=== PATIENT | female | born 1940 | race Caucasian/White ===

== ENCOUNTER 2019-03-26 11:06 | Emergency (ER) | payer MEDICARE, BC ==
[~2019-03-26] VITALS: Ht 165.1 cm; Wt 56.2 kg
[2019-03-26] MEDS ORDERED: ARMOUR THYROID60 M1 PO (11:20)
[2019-03-26] MEDS ORDERED: TRESIBA100 UNIT/1 SUBQ (11:21)
[2019-03-26] MEDS ORDERED: WELLBUTRIN XL300 MG PO (11:21)
[2019-03-26] MEDS ORDERED: NOVOLOG100 UNIT/1 SUBQ (11:21)
[2019-03-26 12:23] LABS: ABSOLUTE EOSINOPHILS 0.4 thou/uL (0.0-0.7); ABSOLUTE LYMPHOCYTES 2.4 thou/uL (0.8-5.3); ABSOLUTE MONOCYTES 0.5 thou/uL (0.0-1.2); ABSOLUTE NEUTROPHILS 5.2 thou/uL (1.6-8.1); BASOPHILS 0.5 %; EOSINOPHILS 4.5 %; HEMATOCRIT 37.7 % (37.0-47.0); HEMOGLOBIN 12.6 gm/dL (12.0-15.0); LYMPHOCYTES 28.2 %; MCH 28.5 pg (26.0-34.0); MCHC 33.5 g/dL (28.0-37.0); MCV 85.2 fL (80.0-100.0); MONOCYTES 5.7 %; MPV 6.7 fl. (7.2-11.1); NUCLEATED RBCS 0 /100WBC; PLATELET COUNT* 370 thou/uL (150-400); POLYS 61.1 %; RBC 4.43 mil/uL (4.20-5.00); RDW-CV 15.2 % (10.5-14.5); WBC 8.5 thou/uL (4.0-11.0)
[2019-03-26 12:34] LABS: ANION GAP 8 mmol/L (7-16); BUN 22 mg/dL (7-18); CALCIUM 9.3 mg/dL (8.5-10.1); CHLORIDE 104 mmol/L (98-107); CO2 28 mmol/L (21-32); CREATININE 0.8 mg/dL (0.6-1.3); GLUCOSE 167 mg/dL (70-99); POTASSIUM 4.2 mmol/L (3.5-5.1); SODIUM 140 mmol/L (136-145)
[2019-03-26 12:44] LABS: ALBUMIN 3.7 g/dL (3.4-5.0); ALKALINE PHOSPHATASE 78 U/L (46-116); NT-PRO BRAIN NAT PEPTIDE 154 pg/mL (<300); SGOT 14 U/L (15-37); SGPT 16 U/L (30-65); TOTAL BILIRUBIN 0.4 mg/dL (<0.1-1.0); TOTAL PROTEIN 7.2 g/dL (6.4-8.2); TROPONIN-I LEVEL <0.06 ng/mL (<0.06)
[2019-03-26] MEDS ORDERED: NORCO 5-325 TA1 EACH PO (14:43)
[2019-03-26] MEDS ORDERED: IBU800 MG PO (14:43)
[2019-03-26] MEDS ORDERED: KEFLEX500 M1 PO (14:43)
[2019-03-26 15:00] VITALS: BP 105/54
--- NOTE | 2019-03-27 11:38 | EKG ---
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
== END 2019-03-26 15:02 | disposition home or self-care (01) ==
LOC: M.ERS 11:06 → EDSEX 11:06 → M.ERS 15:02
PROVIDERS: Personal Emergency Response Attendant
DX: L03.039 Cellulitis of unspecified toe (principal); R11.2 Nausea with vomiting, unspecified

== ENCOUNTER 2019-08-07 11:06 | Emergency (ER) | payer MEDICARE, BC ==
[~2019-08-07] VITALS: Ht 165.1 cm; Wt 57.1 kg
[~2019-08-07 11:06] MED LIST: ARMOUR THYROID60 M1 PO; IBU800 MG PO; KEFLEX500 M1 PO; NORCO 5-325 TA1 EACH PO; NOVOLOG100 UNIT/1 SUBQ; TRESIBA100 UNIT/1 SUBQ; WELLBUTRIN XL300 MG PO
[2019-08-07] MEDS ORDERED: PENICILLIN V P500 MG PO (11:59)
[2019-08-07] MEDS ORDERED: AUGMENTIN 500-1 EACH PO (13:07)
[2019-08-07 13:16] VITALS: BP 133/72
== END 2019-08-07 13:17 | disposition home or self-care (01) ==
LOC: M.ERS 11:06
DX: S01.511A Laceration without foreign body of lip, initial encounter (principal); J01.90 Acute sinusitis, unspecified; E11.9 Type 2 diabetes mellitus without complications; Z79.4 Long term (current) use of insulin; Z90.710 Acquired absence of both cervix and uterus; Z98.890 Other specified postprocedural states; W01.0XXA Fall on same level from slipping, tripping and stumbling without subsequent striking against object, initial encounter; Y93.89 Activity, other specified; Y92.89 Other specified places as the place of occurrence of the external cause; Y99.8 Other external cause status

== ENCOUNTER 2019-08-10 15:27 | Emergency (ER) | payer MEDICARE, BC ==
[~2019-08-10] VITALS: Ht 165.1 cm; Wt 57.6 kg
[~2019-08-10 15:27] MED LIST changes: +AUGMENTIN 500-1 EACH PO; +PENICILLIN V P500 MG PO
[2019-08-10] MEDS ORDERED: NORCO 5-325 TA1 EAC1 PO (16:33)
[2019-08-10 16:41] VITALS: BP 143/71
== END 2019-08-10 16:43 | disposition home or self-care (01) ==
LOC: M.ERS 15:27
DX: S20.212A Contusion of left front wall of thorax, initial encounter (principal); S00.83XA Contusion of other part of head, initial encounter; E11.9 Type 2 diabetes mellitus without complications; Z90.710 Acquired absence of both cervix and uterus; Z98.890 Other specified postprocedural states; Z79.4 Long term (current) use of insulin; W01.0XXA Fall on same level from slipping, tripping and stumbling without subsequent striking against object, initial encounter; Y92.89 Other specified places as the place of occurrence of the external cause; Y93.89 Activity, other specified; Y99.8 Other external cause status

== ENCOUNTER 2019-08-20 17:26 | Inpatient (IN) | payer MEDICARE, BC ==
[~2019-08-20] VITALS: Ht 167.6 cm; Wt 58.4 kg
[~2019-08-20 17:26] MED LIST changes: +NORCO 5-325 TA1 EAC1 PO
[2019-08-20 17:27] VITALS: BP 142/63
[2019-08-20 18:04] LABS: HEMATOCRIT 34.9 % (37.0-47.0); HEMOGLOBIN 11.9 gm/dL (12.0-15.0); MCH 28.1 pg (26.0-34.0); MCV 82.6 fL (80.0-100.0); MPV 6.6 fl. (7.2-11.1); NUCLEATED RBCS 0 /100WBC; PLATELET COUNT* 368 thou/uL (150-400); RBC 4.22 mil/uL (4.20-5.00); RDW-CV 15.9 % (10.5-14.5); WBC 9.1 thou/uL (4.0-11.0)
[2019-08-20 18:17] LABS: ANION GAP 12 mmol/L (7-16); BUN 18 mg/dL (7-18); CALCIUM 8.8 mg/dL (8.5-10.1); CHLORIDE 105 mmol/L (98-107); CO2 24 mmol/L (21-32); CREATININE 0.8 mg/dL (0.6-1.3); GLUCOSE 98 mg/dL (70-99); POTASSIUM 3.6 mmol/L (3.5-5.1); SODIUM 141 mmol/L (136-145)
[2019-08-20 18:27] LABS: ALBUMIN 3.2 g/dL (3.4-5.0); ALKALINE PHOSPHATASE 87 U/L (46-116); NT-PRO BRAIN NAT PEPTIDE 302 pg/mL (<300); SGOT 15 U/L (15-37); SGPT 24 U/L (30-65); TOTAL BILIRUBIN 0.3 mg/dL (<0.1-1.0); TOTAL PROTEIN 6.4 g/dL (6.4-8.2); TROPONIN-I LEVEL <0.06 ng/mL (<0.06)
--- NOTE | 2019-08-20 18:41 | NUR ---
SWALLOW SCREEN TEST PERFORMED. PT DRANK A SIP OF WATER, CLEARED THROAT AFTER. NURSE ASKED IF PT HAD DIFFICULTY SWALLOWING WATER. PT DENIED, SAYING "WATER WENT DOWN FINE". PT CONTINUES TO COUGH. DR. NAGEL STATED HE FELT OKAY WITH PT GETTING ASPIRIN STILL. NURSE HOLDING OFF ON ASPIRIN AT THIS TIME.
[2019-08-20 18:43] LABS: ABSOLUTE EOSINOPHILS 1.5 thou/uL (0.0-0.7); ABSOLUTE LYMPHOCYTES 3.7 thou/uL (0.8-5.3); ABSOLUTE MONOCYTES 0.3 thou/uL (0.0-1.2); ABSOLUTE NEUTROPHILS 3.5 thou/uL (1.6-8.1)
[2019-08-20 18:44] LABS: ATYPICAL LYMPHS 17 %; PLATELET ESTIMATE ADEQUATE
--- NOTE | 2019-08-20 18:53 | NUR ---
REPORT GIVEN TO VINCENT PICKERING. VINCENT PICKERING TO ASSUME PT CARE AT THIS TIME.
[2019-08-20 20:00] VITALS: BP 134/69
[2019-08-21] VITALS: BP 106/61
[2019-08-21 04:00] VITALS: BP 111/66
[2019-08-21 05:00] LABS: ALBUMIN 3.3 g/dL (3.4-5.0); ALKALINE PHOSPHATASE 95 U/L (46-116); ANION GAP 11 mmol/L (7-16); BUN 17 mg/dL (7-18); CALCIUM 8.8 mg/dL (8.5-10.1); CHLORIDE 106 mmol/L (98-107); CHOLESTEROL 201 mg/dL (<200); CO2 26 mmol/L (21-32); CREATININE 0.8 mg/dL (0.6-1.3); GLUCOSE 162 mg/dL (70-99); HDL CHOLESTEROL 72 mg/dL (>40); LDL CHOLESTEROL 118 mg/dL (<100); POTASSIUM 4.3 mmol/L (3.5-5.1); SGOT 17 U/L (15-37); SGPT 25 U/L (30-65); SODIUM 143 mmol/L (136-145); TC:HDL 2.8 Ratio (Not establshd); TOTAL BILIRUBIN 0.4 mg/dL (<0.1-1.0); TOTAL PROTEIN 6.5 g/dL (6.4-8.2); TRIGLYCERIDE 56 mg/dL (<150); VLDL 11 mg/dL (<40)
[2019-08-21 05:14] LABS: SERUM ASSESSMENT CLEAR
--- NOTE | 2019-08-21 07:34 | NUR ---
RECEIVED REPORT AND ASSUMED CARE AT 1999.PT TRANSPORTED FROM ED TO ROOM 201. PT ORIENTATED TO ROOM, CALL LIGHT, FALL POLICY. UP WITH ASSIST, ON RA. PT RECEIVED ANTI-ANXIETY MEDICATION IN ED PRIOR TO ARRIVAL. PT NOT ABLE TO COMPLETE NIH ON ARRIVAL R/T DROWSINESS/ CONFUSION/ UNABLE TO FOLLOW INSTRUCTIONS, R/T MEDICATION. PER ED REPORT NIH =0 PRIOR TO MEDICATION ADMIN. PT COMPLETED NIH LATER IN SHIFT AFTER WAKING. NIH=0 PT DAUGHTER AND PT REPORTED PATIENT HAVING A "FEELING" THAT THE EPISODE WAS COMING. EPISODE INCLUDE "FEELING WARM" A SIGN ITS COMING. THEN CONFUSION WITH COMPLETING TASKS, TROUBLE SPEAKING. AND A " JERKING LIKE" BODY MOVEMENT. NO EPISODES ON THIS SHIFT. ASSESSMENTS COMPLETED CHARTED. CARDIAC MONITORING IN PLACE. PT DENIES COMPLAINTS OF PAIN. BED LOCKED IN LOWEST POSITION, CALL LIGHT WITHIN REACH. HOURLY ROUNDING COMPLETED AND ALL NEEDS MET
[2019-08-21 08:00] VITALS: BP 122/64
[2019-08-21 12:00] VITALS: BP 124/62
--- NOTE | 2019-08-21 12:20 | NUR ---
ASSUMED PT CARE AT 0800, AOX4, UP SBA, O2 SAT 90'S RA. TRACING SR 1ST DEGREE ON TELE. PT DENIES PAIN. PT FOR PT,OT,ST. [facility] IS O IN THIS SHIFT. PT HAD NEURO CONSULT. PT HAS HX OF FALL, REPORTED RIB FRACTURE FROM THAT. IV ACCESS INTACT, PT FOR ACCU CHECK. VSS, AM ASSESSMENT CHARTED. MEDS GIVEN PER MAR, CALL LIGHT WITHIN REACH, WILL CONTINUE TO MONITOR.
[2019-08-21 16:00] VITALS: BP 109/49
--- NOTE | 2019-08-21 16:56 | EKG ---
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
[2019-08-21 20:10] VITALS: BP 108/60
[2019-08-22] VITALS: BP 121/52
[2019-08-22 04:00] VITALS: BP 142/60
--- NOTE | 2019-08-22 06:48 | NUR ---
VSS. SEE MAR. SEE CHARTING. PROGRESSING TOWARDS GOALS. FALL PRECAUTIONS IN PLAC. HOURLYROUNDING FOR SAFETY.
[2019-08-22 08:00] VITALS: BP 136/57
--- NOTE | 2019-08-22 09:53 | NUR ---
Pt is A&O. Resides at home alone. Normally active and independent. No DME. No hx of HH or SNF. Pt plans to dc to her dtr's for a while at discharge and wants HH. CM provided HH list, Pt wants to use [facility]. Updated Dr on disposition. Faxed initial referral. Dtr's address:[address] [place] [address], [facility] [id number]
[2019-08-22 10:38] LABS: URINE BILIRUBIN NEGATIVE (Negative); URINE BLOOD NEGATIVE (Negative); URINE CLARITY CLEAR; URINE COLOR YELLOW; URINE GLUCOSE-RANDOM 1+ (Negative); URINE KETONES TRACE (Negative); URINE LEUKOCYTES-REFLEX NEGATIVE (Negative); URINE NITRITE-REFLEX NEGATIVE (Negative); URINE PROTEIN NEGATIVE (Negative); URINE UROBILINOGEN 0.2 E.U./dl (0.2-1.0)
[2019-08-22 12:00] VITALS: BP 129/63
[2019-08-22 13:46] LABS: GLYCOHEMOGLOBIN (HGB A1C) 7.7 % (4.8-5.6)
[2019-08-22 16:00] VITALS: BP 107/57
--- NOTE | 2019-08-22 17:36 | NUR ---
PT A/O. TELE TRACKING SR/SB AND ALL VSS ON ROOM AIR. DENIES CP, SOA. PT LOOKING FORWARD TO DC SOON. EDUCATED ON SAFETY AND PLAN OF CARE. PLEASE SEE ASSESSMENT FOR ADDITIONAL INFORMATION. WILL CONT TO MONITOR
[2019-08-22 19:30] VITALS: BP 119/55
[2019-08-23] VITALS (9 sets, daily range): BP systolic 101–149; BP diastolic 57–76
--- NOTE | 2019-08-23 06:31 | NUR ---
VSS. ASSESSMENT COMPLETED CHARTED. SEE MAR. PT PROGRESSING TOWARDS GOALS. FALL PRECAUTIONS IN PLACE. HOURLY ROUNDING FOR SAFETY.
--- NOTE | 2019-08-23 08:02 | NUR ---
INITAL ASSESSMENT COMPLETED CHARTED. VSS, TRACING SR WITH 1ST DEGREE BLOCK. NIH=0. PT ALERT & ORIENTED AND ABLE TO VOICE ALL NEEDS. PT C/O LEFT RIB PAIN WITH MOVEMENT ONLY. PT DENIES ANY FURTHER NEEDS AT THIS TIME. HOURLY ROUNDING AND FALL PRECAUTIONS IN PLACE FOR PT SAFETY. CLWR
--- NOTE | 2019-08-23 10:33 | NUR ---
Pt discharging to home today pending neuro signing off. Faxed referral and HH orders to [facility]. Pt to dc to dtr's home. No further needs anticipated.
--- NOTE | 2019-08-23 17:50 | NUR ---
PT HAD A FALL WHILE BEING DISCHARGED AND PREPARING TO LEAVE AT APPROXIMATELY 1730. PT C/O RIGHT HIP AND ANKLE PAIN. NO SHORTENING OR ROTATION NOTED. PHYSICIAN NOTIFIED. HOURLY ROUNDING AND FALL PRECAUTIONS IN PLACE. CLWR.
[2019-08-24 00:18] VITALS: BP 119/56
--- NOTE | 2019-08-24 03:21 | NUR ---
DR NOTIFIED OF RESULTS OF X-RAY. ORDERS RECIEVED. ORTHO CONSULTED, DR DORADO RETURNED CONSULT PAGE, ADDITIONAL ORDERS RECIEVED. DR SHELL CALLED AND STATED THAT DR VALDERRAMA WANTED DR. HIDALGO TO MAKE A NOTE TO CLEAR PT FOR SURGERY, STATING THAT SURGERY WAS SCHEDULED FOR 7AM. DR. HIDALGO NOTIFIED, DR HIDALGO STATED THAT PT HAD NO CARDIAC HISTORY AND THAT HE WAS NOT GOING TO WRITE A NOTE AT THAT TIME, BUT THAT ORTHO COULD TAKE PT TO SURGERY. ORTHO NOTIFIED AND STATED THAT SURGERY TIME HAD BEEN PUSHED BACK TO 1215 AND THAT THEY WOULD TAKE CARE OF CLEARING THE PATIENT IN THE AM. PATIENT AND PATIENTS DAUGHTER UPDATED ON PLAN.
--- NOTE | 2019-08-24 04:06 | NUR ---
PT HAD EPISODE OF LOW BLOOD SUGAR AT BEGINING OF SHIFT. WHILE BLOOD SUGAR WAS LOW PT HAD HEAD, NECK, AND FACIAL TWITCHING. NIH DONE AND JUICE GIVEN. NIH=0, ONCE SUGAR CAME BACK UP, TWITCHING STOPPED. PT EXPRESSED CONCERNS WITH THE AMOUNT OF INSULIN SHE RECIEVED THROUGH THE DAY. PT ASKS IF SHE COULD PLEASE TAKE HER HOME INSULIN WHILE IN THE HOSPITAL: HUMALOG QUICKPEN 5-7 UNITS TID WITH MEALS AND TRESIBA 8-9 UNITS HS. PT GAVE THIS NURSE HER INSULIN PENS TO BE ORDERED AND APPROVED THROUGH PHARMACY. INSULIN PENS IN PATIENT ACCESS BOX, WILL INFORM ONCOMING NURSE.
[2019-08-24 04:29] VITALS: BP 112/61
--- NOTE | 2019-08-24 04:52 | NUR ---
PT SLEPT MOST OF NIGHT. ASSESSMENT DOCUMENTED. MEDS GIVEN PER E-JAN. NEW IV STARTED. PT REMAINED NPO AFTER 0000. HOURLY ROUNDING COMPLETED. WILL CONTINUE WITH PLAN OF CARE.
[2019-08-24 08:21] LABS: HEMATOCRIT 34.7 % (37.0-47.0); HEMOGLOBIN 11.5 gm/dL (12.0-15.0); MCH 27.5 pg (26.0-34.0); MCHC 33.1 g/dL (28.0-37.0); MCV 83.2 fL (80.0-100.0); MPV 6.6 fl. (7.2-11.1); RBC 4.17 mil/uL (4.20-5.00); RDW-CV 15.7 % (10.5-14.5); WBC 9.8 thou/uL (4.0-11.0)
[2019-08-24 08:27] LABS: CALCIUM 8.5 mg/dL (8.5-10.1); MAGNESIUM 1.5 mg/dL (1.8-2.4); POTASSIUM 4.7 mmol/L (3.5-5.1)
[2019-08-24 09:16] VITALS: BP 112/61
[2019-08-24 09:18] VITALS: BP 120/65
--- NOTE | 2019-08-24 09:22 | NUR ---
Pt fell yesterday at nd. Planned surgery today to fix hip fx. CM following for disposition.
--- NOTE | 2019-08-24 17:22 | NUR ---
ASSUMED CARE OF PATIENT AT APPROX 0730. ALERT AND ORIENTED X4. ASSESSMENT COMPLETED AND CHARTED. VSS ON 2 LITERS 02. PAIN MANAGED WITH DILAUDID IV. BLOOD SUGARS HAVE BEEN RUNNING HIGH, PATIENT AND FAMILY DID NOT WANT PATIENT TO HAVE THE ORDERED DOSES OF INSULIN, DR HIDALGO SPOKE WITH FAMILY ABOUT THE IMPORTANCE OF TAKING INSULIN EVEN WHILE BEING NPO. PATIENT TO PACU AT 1100 AND RETUERNED AT 1100 AND RETURNED AT 1519. PATIENT VERY SLEEPY BUT ALERT AND ORIENTED X4. STARTED ON ORAL PAIN MEDICATION AND ENCOURAGED TO EART HER DINNER. INSULIN GIVEN WITH DINNER. FALL PRECAUTIONS IN PLACE. CALL LIGHT WITHIN REACH. HOURLY ROUNDS COMPLETED. NURSING WILL CONTINUE TO MONITOR.
[2019-08-24 19:45] VITALS: BP 107/63
[2019-08-25] VITALS: BP 94/57
[2019-08-25 04:00] VITALS: BP 98/54
[2019-08-25 04:33] LABS: HEMOGLOBIN 10.3 gm/dL (12.0-15.0)
--- NOTE | 2019-08-25 05:43 | NUR ---
PT SLEPT ON AND OFF THIS SHIFT. ASSESSMENT DOCUMENTED. MEDS GIVEN PER E-JAN. IV PATENT, ABX INFUSED. CONT PULSE OX WORN THIS SHIFT. PAIN AND NAUSEA MEDS GIVEN PER E-MAR WITH SOME RELIEF. PT REPOSITIONED IN BED FOR COMFORT. WILL CONTINUE WITH PLAN OF CARE.
[2019-08-25 07:30] VITALS: BP 102/60
[2019-08-25 08:02] LABS: CALCIUM 9.2 mg/dL (8.5-10.1); CREATININE 1.4 mg/dL (0.6-1.3); MAGNESIUM 1.5 mg/dL (1.8-2.4); POTASSIUM 5.1 mmol/L (3.5-5.1)
--- NOTE | 2019-08-25 08:46 | NUR ---
New therapy orders placed. Rehab consult placed, pending decision
[2019-08-25 12:00] VITALS: BP 106/58
--- NOTE | 2019-08-25 19:56 | NUR ---
ASSUMED CARE OF PATIENT AT APPROX 0730. ALERT AND ORIENTED X4. ASSESSMENT COMPLETED AND CHARTED. VSS ON ROOM AIR. PAIN MANAGED WITH TRAMADOL, IBUPROFEN AND SPARING NORCO. PATIENTS CONFUSION WORSENED TODAY. DURING THERAPY THE PATIENT BEGAN TO SAY SHE WAS FEELING DIZZY, NAUSEOUS AND HER SPEECH WAS MAKING NO SENSE. THE PATIENT BEGAN TO SHAKE SO THERAPIST AND MYSELF GOT PATIENT BACK INTO BED. I CHECKED HER BLOOD SUGAR WITH A READING OF 202. PATIENT INSISTENT THAT HER BLOOD SUGAR WAS LOW ALL DAY LONG, DESPITE MY REORIENTATION OF CONFIRMING WHAT HER BLOOD SUGARS ACTUALLY WERE. PATIENT SUFFERING FROM FLIGHT OF IDEAS ALL THROUGHOUT THE SHIFT, ARGUING WITH NURSE ABOUT HOW THE INSULIN WE ARE GIVING HER IS WRONG ANF THAT IS WHY HER BLOOD SUGARS HAVE BEEN LOW. REPEATEDLY RECITING HER BLOOD SUGARS TO HER AND THAT THEY WERE NEVER LOW THIS SHIFT. PATIENT BECOMES AGITATED AND STATED "YOUR NOT LISTENING TO ME, YOU AND LUCIO JUST KEEP TALKIONG OVER ME AND NO ONE LETS ME FINISH." I ALLOWED THE PATIENT TO SPEAK WITHOUT INRTERRUPTION AND THIS LED TO ME BEING IN THE PATIENTS ROOM FOR 45 MINUTES WHILE SHE WENT FROM ONE SUBJECT TO ANOTHER BEFORE FINALLY HAVING TO JUST WALK OUT OF THE ROOM BECAUSE SHE WOULD GET ANGRY WHEN I TRIED TO INTERJECT SO I COULD LET HER KNOW I HAD TO TAKE CARE OF MY OTHER PATIENTS. REPEATED EFFORTS TO REDIRECT PATIENTS FLIGHT OF THOUGHTS/IDEAS WERE FRUITLESS AND ONLY INCREASED THE PATIENTS AGITATION. THIS NURSE MADE INTERACTION WITH THE PATIENT AT DINNER TIME (1730) VERY BRIEF AND DID NOT INTERACT WITH CONVERSATIONS ABOUT HER BLOOD SUGARS, MEDICATIONS, CELLULAR PHONE MALFUNCTIONS, ETC. THE PATIENT DID NOT EAT HER LUNCH SO I SPENT EXTRA TIME SETTING UP HER DINNER TRAY AND CUTTING UP HER CHICKEN SO THAT IT WAS EASIER FOR HER TO EAT. I MADE SURE THAT THERE WERE NO INTERRUPTIONS OR STIMULUS WHILE SHE WAS EATING HER DINNER. PATIENT ONLY ATWE ABOUT 30% OF HER MEAL REGARDLESS OF THIS. FALL PRECAUTIONS IN PLACE. PATIENT ACTUALLY GETS UP VERY, WITH GAIT BELT AND WALKER, WELL IF YOU CAN GET HER TO FOLLOW COMMANDS. USING BEDSIDE COMMODE. HOURLY ROUNDS COMPLETED. CALL LIGHT WITHIN REACH. NURSING WILL CONTINUE TO MONITOR. CAN
[2019-08-25 20:00] VITALS: BP 121/61
[2019-08-26 04:18] VITALS: BP 126/59
[2019-08-26 04:29] LABS: HEMATOCRIT 23.8 % (37.0-47.0)
[2019-08-26 08:00] VITALS: BP 129/58
--- NOTE | 2019-08-26 11:19 | NUR ---
Pt discharging to acute rehab today, to room 321. 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 Plan continues to be for Pt to dc to her dtr's home, with Reva OMALLEY. Dtr also states that she has friends and add'l family that is availablet to assist as needed. CM faxed dc orders.
[2019-08-26] MEDS ORDERED: ULTRAM50 MG PO (11:51)
[2019-08-26] MEDS ORDERED: ASA81BEC PO ×2 (11:53→18:55)
[2019-08-26] MEDS ORDERED: NORCO 5-325 TA1 EAC1 PO ×2 (11:54)
[2019-08-26 12:32] VITALS: BP 101/57
[2019-08-26] MEDS ORDERED: MIRALAX119 GM PO (12:51)
--- NOTE | 2019-08-26 14:31 | NUR ---
THIS RN HAS REVIEWED AND AGREES WITH THE ASSESSMENT AND CHARTING OF ROMEO KAUR.
[2019-08-26] MEDS ORDERED: HUMALOG100 UNIT/1 SUBQ (15:02)
--- NOTE | 2019-08-30 13:42 | OP ---
[address] [address] OPERATIVE REPORT Name: SIRIA AMRTINETTE Room: [address] IN M.R.#: [id number] Admission: 08/20/19 Attend Phys: Abel Munoz MD Discharge: 08/26/19 Date of : 44 Report #: [id number] THIS REPORT FOR: //name// CC: Abel Munoz [facility] physician/PCP DATE OF SERVICE: 08/24/2019 PREOPERATIVE DIAGNOSIS: Displaced right subcapital hip fracture. POSTOPERATIVE DIAGNOSIS: Displaced right subcapital hip fracture. SURGERY PERFORMED: Luz Marina Taperloc right hip hemiarthroplasty, bipolar. SURGEON: Pramod Mccracken DO. TRANSFER MAN: Mook Starks DO, resident. ANESTHESIA: General anesthetic. ANTIBIOTICS: The patient did receive Ancef 2 grams IV piggyback preoperatively. ESTIMATED BLOOD LOSS: 100 mL. DRAINS: None. SPECIMENS: None. COMPLICATIONS: None. GROSS FINDINGS: Prior to surgery, her x-rays correlated with the intraoperative findings, she definitely had a displaced right subcapital hip fracture. The patient did not have any other findings noted within the hip joint itself on inspection. Post placement of the right hip, she demonstrated a good stable arc of motion of the right hip today in all planes with no ability to dislocate the hip. The patient upon closing the hip; however, I did hear a little small sound. It was hard to describe, but it was, we could not tell where it came from, so one make sure that there was no crack in the femur anywhere that we did x-ray her right leg intraoperatively 2 films and no fracture was seen by my eyes. I did go ahead and tell the family the situation and told them we will also take some x-rays in recovery room again to verify this. In any event, she had very hard cortical bone on placement of this prosthesis. Upon they are appropriately reaming and broaching, they did go down nicely to the femoral shaft with no visible audible sounds at that time. Even placement of the real prosthesis, no audible [place] [address] OPERATIVE REPORT Name: SIRIA MARTIN Room: [address] IN .R.#: [id number] Admission: 08/20/19 Attend Phys: Abel Munoz MD Discharge: 08/26/19 Date of : 44 Report #: [id number] SURGERY IN DETAIL: This pleasant patient was taken to the operating room and given a general anesthetic in her bed and then transferred over to the fracture table. She was then rolled onto her left side, secured in place by me in the pegboard technique, underwent a Hibiclens scrub and chlorhexidine prep and sterile draping for right leg surgery. Timeout was called and verified by everyone in the room for the right leg. Surgery began at this stage, then with a slightly curvilinear incision, a scalpel 10 blade was used to make across the greater trochanter extending proximally and distally in line with the femur through skin and subcutaneous tissues down to the tensor, which was split by scissors technique. A Charnley retractor was applied to visualize the gluteus medius and minimus reflected them off the insertion at this stage. The hip capsule was now cut open in a H fashion. The fractured femoral neck was exposed and cut with the reciprocating saw using the guide as a template. Once this was accomplished, I removed the femoral head, sized it to a 43 just to visualize it, copiously irrigated out the acetabulum out, removed the fovea. We did go ahead and at this time, I sized the acetabulum. A 44 sizer fit better than a 43, so that is what I elected down the road for the bipolar aspect. I now did sequential broaching of the femoral canal. When I got up to size 13, I did a trial reduction after I pulled it out. The broach stem moved within the canal, so I had to go up 1 more size and since it was felt a little tight, I reamed distally to a size 13 and easily the broach went down at that stage. The broach was solid, so I elected to irrigate the canal out. I did now tamp into position the real 14 mm tapered stem to the appropriate position. It fit quite nicely and then I put on to the femoral neck the 0 neck length with the 44 bipolar and gave it a tap to securely seat it on that femoral neck. At this stage, the femoral head was reduced into the acetabulum and had good range of motion, good stability and ability to dislocate the hip. I copiously irrigated prior to closure. The capsule was #1 Vicryl in [id number] fashion. I did do the gluteus medius and minimus with a #5 Tycron to reinsert them. After the gluteus medius and minimus, I closed the tensor layer with #1 Vicryl in [id number] fashion. Upon placement of one of those Vicryls through the tensor, I did hear that small audible sound, I am not sure what it was, so the x-rays were taken at that time and again verified. I did not see any acute intraoperative fractures of this femur. I did go ahead and continue now with closure of subcutaneous tissues, 2-0 Monocryl running Stratafix with Dermabond, Mepilex dressing was applied. The patient was transferred off table, taken to recovery in stable condition. I attest I was present for all critical aspects of the surgery. [place], instruments and sponge counts correct. I did do the appropriate case with the reaming, the broaching and placement of the prosthesis [place] [address] OPERATIVE REPORT Name: SIRIA MARTIN REJI Room: [address]#: [id number] Admission: 08/20/19 Attend Phys: Abel Munoz MD Discharge: 08/26/19 Date of : 44 Report #: [id number] were no anesthesia complications during the surgery as I asked them prior to leaving as well. <ELECTRONICALLY SIGNED> By: Pramod Mccracken DO 08/30/19 1342 1348 1503Ccharlee Mccracken DO /nt
--- NOTE | 2019-09-03 19:25 | EEG ---
[address] [address] EEG STUDY REPORT Name: SIRIA MARTIN REJI Room: [address] IN .R#: [id number] Admission: 08/20/19 Attend Phys: Abel Munoz MD Discharge: 08/26/19 Date of : 44 Report #: [id number] THIS REPORT FOR: //name// CC: Abel Munoz FAM physician/PCP DATE OF SERVICE: 08/22/2019 This is a 79-year-old female patient who was evaluated by me for the possibility of seizure. EEG was done by placing the electrodes by standard 10-20 system of electrode placement. Both referential and sequential montages were used for recording. The patient's background activity appeared to be about 9 Hz and 30 microvolts. It is a symmetrical activity. The patient went to sleep and that is associated with bilateral slowing and vertex sharp waves. Photic stimulation was unremarkable. Throughout the record, no active epileptiform activity was noticed. IMPRESSION: This patient's EEG does not demonstrate any active epileptiform activity. It might be mentioned that EEG can be normal in a patient with a seizure disorder. Thank you very much for this referral. <ELECTRONICALLY SIGNED> By: Wan Ty MD 09/03/19 [id number] [id number] Ty MD /nt
== END 2019-08-26 14:30 | DRG 628 ==
LOC: M.ERS 17:26 → M.TBA-ER 18:38 → M.2W 18:38
PROVIDERS: Emergency Medicine Emergency Medical Services; Internal Medicine; Orthopaedic Surgery; ADMIT Internal Medicine
PROC: 0SRR0JZ Replacement of Right Hip Joint, Femoral Surface with Synthetic Substitute, Open Approach (ICD-10-PCS; principal; 2019-08-24)
DX: E11.649 Type 2 diabetes mellitus with hypoglycemia without coma (principal); G93.41 Metabolic encephalopathy; E44.1 Mild protein-calorie malnutrition; M80.051A Age-related osteoporosis with current pathological fracture, right femur, initial encounter for fracture; G45.9 Transient cerebral ischemic attack, unspecified; E03.9 Hypothyroidism, unspecified; W18.39XA Other fall on same level, initial encounter; Y93.89 Activity, other specified; Y92.89 Other specified places as the place of occurrence of the external cause; Y99.8 Other external cause status; Z90.710 Acquired absence of both cervix and uterus; Z88.6 Allergy status to analgesic agent; Z88.8 Allergy status to other drugs, medicaments and biological substances; Z87.891 Personal history of nicotine dependence; Z79.4 Long term (current) use of insulin

== ENCOUNTER 2019-08-26 10:43 | Inpatient (IN) | payer MEDICARE, BC ==
[~2019-08-26] VITALS: Ht 167.6 cm; Wt 59.9 kg
[2019-08-26] MEDS ORDERED: ULTRAM50 MG PO (11:51)
[2019-08-26] MEDS ORDERED: ASA81BEC PO ×2 (11:53→18:55)
[2019-08-26] MEDS ORDERED: NORCO 5-325 TA1 EAC1 PO ×2 (11:54)
[2019-08-26] MEDS ORDERED: MIRALAX119 GM PO (12:51)
[2019-08-26 14:30] VITALS: BP 127/60
[2019-08-26] MEDS ORDERED: HUMALOG100 UNIT/1 SUBQ (15:02)
[2019-08-26 19:36] VITALS: BP 135/60
[2019-08-26 22:00] LABS: URINE BILIRUBIN NEGATIVE (Negative); URINE BLOOD TRACE (Negative); URINE CLARITY CLEAR; URINE COLOR YELLOW; URINE GLUCOSE-RANDOM TRACE (Negative); URINE KETONES NEGATIVE (Negative); URINE LEUKOCYTES NEGATIVE (Negative); URINE NITRITE NEGATIVE (Negative); URINE PROTEIN NEGATIVE (Negative); URINE SPECIFIC GRAVITY <= 1.005 (1.005-1.030); URINE UROBILINOGEN 0.2 E.U./dl (0.2-1.0)
[2019-08-27 05:09] LABS: HEMATOCRIT 23.9 % (37.0-47.0); MCH 28.1 pg (26.0-34.0); MCHC 33.6 g/dL (28.0-37.0); MCV 83.8 fL (80.0-100.0); MPV 7.4 fl. (7.2-11.1); RBC 2.86 mil/uL (4.20-5.00); WBC 11.5 thou/uL (4.0-11.0)
[2019-08-27 05:30] LABS: POTASSIUM 4.1 mmol/L (3.5-5.1)
[2019-08-27 11:29] VITALS: BP 120/58
[2019-08-27 19:00] VITALS: BP 114/62
[2019-08-28 07:39] VITALS: BP 123/56
[2019-08-28 19:09] VITALS: BP 120/55
[2019-08-29 04:49] LABS: CREATININE 0.8 mg/dL (0.6-1.3); POTASSIUM 4.2 mmol/L (3.5-5.1)
[2019-08-29 09:08] VITALS: BP 131/61
[2019-08-29 20:30] VITALS: BP 118/59
[2019-08-30 07:24] VITALS: BP 120/50
[2019-08-30 19:30] VITALS: BP 139/62
[2019-08-31 20:00] VITALS: BP 113/54
[2019-09-01 07:19] VITALS: BP 120/62
[2019-09-01 20:00] VITALS: BP 113/54
[2019-09-02 07:28] VITALS: BP 130/64
[2019-09-02 20:00] VITALS: BP 120/71
[2019-09-03 08:00] VITALS: BP 122/66
[2019-09-03 20:00] VITALS: BP 143/74
[2019-09-04 08:00] VITALS: BP 127/67
[2019-09-04 20:00] VITALS: BP 105/53
[2019-09-05 08:00] VITALS: BP 133/63
[2019-09-05 19:30] VITALS: BP 126/55
[2019-09-06 08:05] VITALS: BP 130/55
[2019-09-06 09:00] VITALS: BP 130/55
[2019-09-06 15:47] LABS: ABSOLUTE BASOPHILS 0.1 thou/uL (0.0-0.2); ABSOLUTE EOSINOPHILS 0.7 thou/uL (0.0-0.7); ABSOLUTE LYMPHOCYTES 3.2 thou/uL (0.8-5.3); ABSOLUTE MONOCYTES 0.7 thou/uL (0.0-1.2); ABSOLUTE NEUTROPHILS 4.1 thou/uL (1.6-8.1); BASOPHILS 0.7 %; EOSINOPHILS 8.2 %; HEMATOCRIT 28.6 % (37.0-47.0); HEMOGLOBIN 9.4 gm/dL (12.0-15.0); LYMPHOCYTES 36.5 %; MCH 27.9 pg (26.0-34.0); MCV 84.7 fL (80.0-100.0); MONOCYTES 7.5 %; MPV 6.4 fl. (7.2-11.1); NUCLEATED RBCS 0 /100WBC; PLATELET COUNT* 709 thou/uL (150-400); POLYS 47.1 %; RBC 3.38 mil/uL (4.20-5.00); RDW-CV 17.3 % (10.5-14.5); WBC 8.7 thou/uL (4.0-11.0)
[2019-09-06 16:01] LABS: ALBUMIN 3.1 g/dL (3.4-5.0); CALCIUM 9.6 mg/dL (8.5-10.1); CREATININE 1.1 mg/dL (0.6-1.3); POTASSIUM 4.4 mmol/L (3.5-5.1); TOTAL BILIRUBIN 0.3 mg/dL (<0.1-1.0); TOTAL PROTEIN 7.1 g/dL (6.4-8.2)
[2019-09-06 21:44] VITALS: BP 126/57
[2019-09-07 07:30] VITALS: BP 129/60
[2019-09-07 20:00] VITALS: BP 123/59
[2019-09-08 08:00] VITALS: BP 136/69
[2019-09-08 19:10] VITALS: BP 130/59
[2019-09-09 08:42] VITALS: BP 135/72
[2019-09-09 11:28] VITALS: BP 135/72
[2019-09-09 12:53] VITALS: BP 135/72
[2019-09-09] MEDS ORDERED: FLEXERIL PO (13:13)
[2019-09-09] MEDS ORDERED: FOLIC ACID1 MG PO (13:22)
== END 2019-09-09 18:26 | disposition home health service (06) | DRG 536 ==
LOC: M.REH 10:43
PROVIDERS: Internal Medicine; ADMIT Physical Medicine & Rehabilitation
DX: S72.001A Fracture of unspecified part of neck of right femur, initial encounter for closed fracture (principal); D62 Acute posthemorrhagic anemia; E87.1 Hypo-osmolality and hyponatremia; G93.40 Encephalopathy, unspecified; E11.649 Type 2 diabetes mellitus with hypoglycemia without coma; R33.9 Retention of urine, unspecified; W18.39XA Other fall on same level, initial encounter; Y93.89 Activity, other specified; Y92.89 Other specified places as the place of occurrence of the external cause; Y99.8 Other external cause status; Z88.8 Allergy status to other drugs, medicaments and biological substances; Z90.710 Acquired absence of both cervix and uterus; Z98.891 History of uterine scar from previous surgery; Z87.891 Personal history of nicotine dependence; Z79.899 Other long term (current) drug therapy; Z79.4 Long term (current) use of insulin; Z79.82 Long term (current) use of aspirin

== ENCOUNTER → 2019-12-22 | Outpatient (CLI) | payer MEDICARE, BC ==
[~2019-12-22] MED LIST changes: +ASA81BEC PO; +FLEXERIL PO; +FOLIC ACID1 MG PO; +HUMALOG100 UNIT/1 SUBQ; +MIRALAX119 GM PO; +ULTRAM50 MG PO
== END ==
LOC: M.CT 15:32
DX: J34.89 Other specified disorders of nose and nasal sinuses (principal); J32.9 Chronic sinusitis, unspecified